=== PATIENT | female | born 1950 | race Caucasian/White ===

== ENCOUNTER → 2021-01-14 | Outpatient (CLI) | payer MEDICARE ==
[~2021-01-14] MED LIST: ALEN70TA77 PO; AMLO-211 PO; ATOR20TA37 PO; FURO20TA3 PO; GABA300C PO; HYDR200T72 PO; LEVO50TA5 PO; LISI-167 PO; METF10007 PO; PIOG30TA68 PO; POTA10TA31 PO
[2021-01-14 14:20] LABS: ALANINE AMINOTRANSFERASE 20 U/L (12-78); ALBUMIN 4.1 g/dL (3.4-5.0); ANION GAP 9 mmol/L (5-15); CALCIUM 10.1 mg/dL (8.5-10.1); CHLORIDE 104 mmol/L (98-107); CREATININE 0.87 mg/dL (0.55-1.02)
[2021-01-14 14:22] LABS: ALKALINE PHOSPHATASE 113 U/L (45-117); BILIRUBIN,TOTAL 0.5 mg/dL (0.2-1.0); TOTAL PROTEIN 7.7 g/dL (6.4-8.2)
== END | disposition home or self-care (01) ==
LOC: STAR 12:30
PROVIDERS: ATTEND Orthopaedic Surgery
DX: Z01.818 Encounter for other preprocedural examination (principal); M19.012 Primary osteoarthritis, left shoulder; M25.512 Pain in left shoulder; I45.10 Unspecified right bundle-branch block; Z20.822 Contact with and (suspected) exposure to COVID-19
CPT/HCPCS: 36415; 80053; 87081; 93005; U0003

== ENCOUNTER 2021-01-20 08:21 | Observation (INO) | payer MEDICARE, BC ==
[~2021-01-20] VITALS: Ht 160 cm; Wt 100.0 kg
[~2021-01-20 08:21] MED LIST changes: +BUPIVACAINE LIPOSOME/PF 10ML INFIL ONE
[2021-01-20] MEDS ORDERED: CHLORHEXIDINE 15 ML UDC ONE (08:57)
[2021-01-20] MEDS ORDERED: LACTATED RINGERS 1,000 ML IV SCH (09:00)
[2021-01-20] MEDS ORDERED: CHLORHEXIDINE 15 ML UDC PO ONE (09:00)
[2021-01-20 09:59] VITALS: BP 144/77
[2021-01-20] MEDS ORDERED: MEPERIDINE/PF 25MG/0.5ML IVPush PRN (10:00)
[2021-01-20] MEDS ORDERED: OXYcodone 5 MG/5 ML ORAL.SOL UDC PO PRN (10:00)
[2021-01-20] MEDS ORDERED: HYDROcodone/APAP 7.5-325MG/15ML UDC PO PRN (10:00)
[2021-01-20] MEDS ORDERED: ONDANSETRON 2MG/ML, 2ML IVPush PRN (10:00)
[2021-01-20] MEDS ORDERED: PROMETHAZINE 25 MG/ML, 1ML IVPush PRN (10:00)
[2021-01-20] MEDS ORDERED: HYDROmorphone 1 MG/ML, 1ML INJ IVPush PRN (10:00)
[2021-01-20] MEDS ORDERED: MIDAZOLAM 1 MG/ML, 2ML ONE (10:20)
[2021-01-20] MEDS ORDERED: FENTANYL PF 100 MCG/2ML ONE ×3 (10:20→12:53)
[2021-01-20] MEDS: ACETAMINOPHEN 500 MG TABLET PO SCH ×3 (10:30→23:28)
[2021-01-20] MEDS ORDERED: D5%-0.45% NACL 1,000 ML IV SCH (10:30)
[2021-01-20] MEDS ORDERED: CEFAZOLIN PMX 1GM/50ML 50 ML IVPB SCH ×2 (10:30→19:00)
[2021-01-20] MEDS ORDERED: MORPHINE SULFATE 4 MG/ML, 1ML IVPush PRN (10:30)
[2021-01-20] MEDS ORDERED: EPHEDRINE 50 MG/ML, 1ML ONE (11:07)
[2021-01-20] MEDS ORDERED: GLYCOPYRROLATE 0.2MG/1ML, 5ML ONE (12:28)
[2021-01-20] MEDS ORDERED: DEXAMETHASONE 4 MG/ML, 1ML ONE (12:28)
[2021-01-20] MEDS ORDERED: CEFAZOLIN 1,000 MG ONE (12:28)
[2021-01-20] MEDS ORDERED: ONDANSETRON 2MG/ML, 2ML ONE (12:28)
[2021-01-20] MEDS ORDERED: NEOSTIGMINE 1 MG/ML, 10ML ONE (12:28)
[2021-01-20] MEDS ORDERED: PROPOFOL 10 MG/ML, 20ML ONE (12:28)
[2021-01-20] MEDS ORDERED: SUCCINYLCHOLINE 20 MG/ML, 10ML ONE (12:28)
[2021-01-20] MEDS ORDERED: ROCURONIUM 10MG/ML,5ML ONE (12:28)
[2021-01-20] MEDS ORDERED: ACETAMINOPHEN 650 MG/20.3 ML UDC ONE (12:52)
[2021-01-20] MEDS ORDERED: hydrALAzine 20 MG/ML, 1ML ONE (12:53)
[2021-01-20] MEDS: FENTANYL PF 100 MCG/2ML IV PRN ×2 (12:55→13:12)
[2021-01-20] MEDS ORDERED: PROMETHAZINE 25 MG/ML, 1ML ONE (13:05)
[2021-01-20] MEDS ORDERED: OXYcodone 5 MG/5 ML ORAL.SOL UDC ONE (13:24)
[2021-01-20] MEDS: OXYcodone IR 5MG TABLET PO PRN ×3 (16:53→21:36)
[2021-01-20] MEDS: metFORMIN 500 MG TABLET PO SCH (16:53)
[2021-01-20] MEDS: CEFAZOLIN PMX 1GM/50ML 50 ML IVPB SCH (19:45)
[2021-01-20 19:59] VITALS: BP 132/69
[2021-01-20] MEDS ORDERED: ATORVASTATIN 20 MG TABLET PO SCH (21:00)
[2021-01-20] MEDS: DOCUSATE 100 MG CAPSULE PO SCH (21:35)
[2021-01-20] MEDS: HYDROXYCHLOROQUINE 200 MG TABLET PO SCH (21:36)
[2021-01-21 00:25] VITALS: BP 108/49
[2021-01-21 03:50] VITALS: BP 127/74
[2021-01-21] MEDS: CEFAZOLIN PMX 1GM/50ML 50 ML IVPB SCH (04:09)
[2021-01-21] MEDS: ACETAMINOPHEN 500 MG TABLET PO SCH ×3 (04:10→16:58)
[2021-01-21 07:25] VITALS: BP 111/67
[2021-01-21] MEDS ORDERED: LISINOPRIL 10 MG TABLET PO SCH (09:00)
[2021-01-21] MEDS ORDERED: GABAPENTIN 300 MG CAPSULE PO SCH (09:00)
[2021-01-21] MEDS ORDERED: PIOGLITAZONE 15 MG TABLET PO SCH (09:00)
[2021-01-21] MEDS ORDERED: AMLODIPINE 10 MG TAB PO SCH (09:00)
[2021-01-21] MEDS ORDERED: LEVOTHYROXINE 50 MCG TABLET PO SCH (09:00)
[2021-01-21] MEDS: HYDROXYCHLOROQUINE 200 MG TABLET PO SCH (09:17)
[2021-01-21] MEDS: DOCUSATE 100 MG CAPSULE PO SCH (09:20)
[2021-01-21] MEDS: OXYcodone IR 5MG TABLET PO PRN ×2 (09:23→15:17)
[2021-01-21] MEDS: metFORMIN 500 MG TABLET PO SCH (09:23)
[2021-01-21 09:25] VITALS: BP 112/64
[2021-01-21 12:43] VITALS: BP 111/67
[2021-01-22] MEDS ORDERED: FUROSEMIDE 20 MG TABLET PO SCH (09:00)
[2021-01-22] MEDS ORDERED: POTASSIUM CHLORIDE 10 MEQ TABLET.ER PO SCH (09:00)
== END 2021-01-21 17:00 | disposition home or self-care (01) ==
LOC: OUT 08:21 → ORIP 10:26 → 4NE 14:11
PROVIDERS: ADMIT Orthopaedic Surgery; ATTEND Orthopaedic Surgery
DX: M19.012 Primary osteoarthritis, left shoulder (principal); M06.9 Rheumatoid arthritis, unspecified; E11.9 Type 2 diabetes mellitus without complications; G47.33 Obstructive sleep apnea (adult) (pediatric); E66.01 Morbid (severe) obesity due to excess calories; I10 Essential (primary) hypertension; Z79.899 Other long term (current) drug therapy; Z90.710 Acquired absence of both cervix and uterus
CPT/HCPCS: 23472; 29828; 82962; 96365; 96366; 97162; 97166; C1713; C1776; G0378; J0330; J0690; J1100; J2250; J2405; J2550; J2704; J2710; J3010; J7120